=== PATIENT | female | born 1945 | race Two or more races ===

== ENCOUNTER → 2024-08-11 | Outpatient (CLI) | payer OTHER, SELFPAY ==
--- NOTE | 2024-08-11 13:30 | XR_ITS ---
Examination: Breast ultrasound complete, bilateral Date and time of exam: August 11, 2024 1413 hours INDICATIONS: Mammogram May 23, 2024 14 mm focal asymmetry upper outer right breast, 6 mm focal asymmetry inner right breast Technique: Real-time grayscale ultrasonographic imaging bilateral breasts, including all 4 quadrants as well as nipple retroareolar and axillary regions. Findings: Sonographic images right breast 11:00 oval mass circumscribed 8 x 4 x 6 mm Sonographic images left breast No cystic or solid mass IMPRESSION: BI-RADS Category 3: Probably benign findings Recommend continued 6 month follow-up right breast sonogram to document stability of 11:00 nodule described above
--- NOTE | 2024-08-11 14:30 | XR_ITS ---
Examination: Diagnostic digital mammography, unilateral, right Computer aided detection 3-D breast Tomosynthesis, unilateral Date and time of exam: August 11, 2024 1523 hours INDICATIONS: Mammogram May 23, 2024 14 mm focal asymmetry outer right breast 6 mm focal asymmetry inner right breast Technique: Nonmagnified MLO, CC views of the right breast have been obtained, reconstructed from 3-D Tomosynthesis images. R2 computer aided detection program utilized for evaluation of suspicious masses and/or abnormal calcifications. 3-D Tomosynthesis images obtained. Findings: The breast is heterogeneously dense, which may obscure small masses Focal asymmetry remains slightly outer right breast on the spot compression CC view Impression: BI-RADS category 3: Probably benign findings One additional 6 month right mammogram follow-up is needed to document stability of focal asymmetry slightly outer right breast on the CC view, approximately 15 mm
== END | disposition home or self-care (01) ==
LOC: CDIM 13:30
PROVIDERS: PCP Family Medicine; Referring Provider Family Medicine; Visit Provider Family Medicine
DX: R92.331 Mammographic heterogeneous density, right breast (principal); N64.89 Other specified disorders of breast; N63.11 Unspecified lump in the right breast, upper outer quadrant
CPT/HCPCS: 76641; 77061; 77065; G0279

== ENCOUNTER → 2024-08-25 | Outpatient (CLI) | payer OTHER, SELFPAY ==
[2024-08-25 13:31] LABS: Glucose Estimated Average 229 mg/dL (80-131); Hemoglobin A1C 9.6 % Hgb (4.8-6.0)
[2024-08-25 13:32] LABS: Basophils # (Auto) 0.1 Thou/mm3 (0.0-0.2); Basophils % (Auto) 1 % (0-2.5); Eosinophils # (Auto) 0.2 Thou/mm3 (0.0-0.5); Eosinophils % (Auto) 3 % (0-10); Hemoglobin 13.7 g/dL (12.0-16.0); Immature Granulocytes % (Auto) 0 % (0-0); Immature Granulocytes Auto 0.02 Thou/mm3 (0.00-0.00); Lymphocytes # (Auto) 1.7 Thou/mm3 (1.0-4.8); Lymphocytes % (Auto) 27 % (10-50); Mean Corpuscular HGB Conc 34.3 g/dl (31.0-37.0); Mean Corpuscular Hemoglobin 33.3 pg (25.0-35.0); Mean Corpuscular Volume 97 fL (80-100); Monocytes # (Auto) 0.5 Thou/mm3 (0.0-0.8); Monocytes % (Auto) 7 % (0-12); Neutrophils # (Auto) 3.8 Thou/mm3 (1.8-7.7); Neutrophils % (Auto) 61 % (37-80); Nucleated Red Blood Cell % 0 /100 WBC (0); Platelet Count 267 Thou/mm3 (140-440); RDW Standard Deviation 44.3 fL (36.4-46.3); Red Blood Count 4.11 Miln/mm3 (4.00-5.20); White Blood Count 6.3 Thou/mm3 (3.6-11.0)
[2024-08-25 13:38] LABS: Alanine Aminotransferase 31 U/L (10-49); Albumin, Serum 4.7 gm/dL (3.4-4.8); Albumin/Globulin Ratio 2.1 (1.2-2.2); Alkaline Phosphatase 98 U/L (46-116); Anion Gap 9 (7-16); Aspartate Amino Transferase 25 U/L (0-34); BUN/Creatinine Ratio 21 Ratio (12-20); Bilirubin,Total 0.8 mg/dL (0.3-1.2); Blood Urea Nitrogen 17 mg/dL (9-23); Calcium 10.3 mg/dL (8.3-10.6); Calcium (Corrected) 10.3 mg/dL (8.5-10.1); Carbon Dioxide 28.7 mMol/L (20.0-31.0); Cardiac Risk Estimate 4.2 RATIO (3.7-5.6); Chloride 98 mMol/L (98-107); Cholesterol 183 mg/dL (132-200); Creatinine (Component) 0.8 mg/dL (0.6-1.3); Globulin 2.2 gm/dL (2.3-3.5); Glucose 288 mg/dL (74-106); HDL Cholesterol 44 mg/dL (40-60); LDL Cholesterol,Calculated 92 mg/dL (0-130); Osmolality,Calculated 284 (275-295); Sodium 136 mMol/L (136-145); Total Protein 6.9 gm/dL (5.7-8.2); Triglycerides 237 mg/dL (30-150); eGFR > 60 See Note
[2024-08-25 17:18] LABS: Collection Type, Urine Clean Catch
[2024-08-25 17:44] LABS: Bacteria,Urine Rare; Bilirubin,Urine Negative (Negative); Blood,Urine Negative (Negative); Clarity,Urine Clear (Clear/Hazy); Color,Urine Lt-Yellow (Lt Yel-Yel); Glucose, Urine 4+ (Negative); Ketones,Urine Negative (Negative); Leukocyte Esterase,Urine Negative (Negative); Nitrite,Urine Negative (Negative); Protein,Urine Negative (Neg - Trace); RBC,Urine 3 /hpf (0-3); Specific Gravity,Urine 1.031 (1.001-1.035); Squamous Epithelial Cell,Urine 2 /hpf (0-5); Urobilinogen,Urine Negative mg/dL (0.0-1.0); WBC,Urine 2 /hpf (0-5)
[2024-08-25 17:56] LABS: Creatinine MALB Rnd Ur 55 mg/dL (30-125); Microalbumin Creat Ratio 25 mg/gCrea (<30); Microalbumin, Random Urine 14 mg/L (0-300)
== END | disposition home or self-care (01) ==
LOC: COPL 11:47
PROVIDERS: PCP Family Medicine; Referring Provider Family Medicine; Visit Provider Family Medicine
DX: Z00.00 Encounter for general adult medical examination without abnormal findings (principal); E11.40 Type 2 diabetes mellitus with diabetic neuropathy, unspecified; E78.2 Mixed hyperlipidemia; I10 Essential (primary) hypertension
CPT/HCPCS: 36415; 80053; 80061; 81001; 82043; 82570; 83036; 85025

== ENCOUNTER → 2024-10-27 | Outpatient (CLI) | payer OTHER, SELFPAY ==
[2024-10-27 13:36] LABS: Basophils # (Auto) 0.1 Thou/mm3 (0.0-0.2); Basophils % (Auto) 1 % (0-2.5); Eosinophils # (Auto) 0.2 Thou/mm3 (0.0-0.5); Eosinophils % (Auto) 2 % (0-10); Hemoglobin 13.8 g/dL (12.0-16.0); Immature Granulocytes % (Auto) 0 % (0-0); Immature Granulocytes Auto 0.02 Thou/mm3 (0.00-0.00); Lymphocytes # (Auto) 1.5 Thou/mm3 (1.0-4.8); Lymphocytes % (Auto) 18 % (10-50); Mean Corpuscular HGB Conc 34.5 g/dl (31.0-37.0); Mean Corpuscular Hemoglobin 32.9 pg (25.0-35.0); Mean Corpuscular Volume 96 fL (80-100); Monocytes # (Auto) 0.3 Thou/mm3 (0.0-0.8); Monocytes % (Auto) 4 % (0-12); Neutrophils % (Auto) 75 % (37-80); Nucleated Red Blood Cell % 0 /100 WBC (0); Platelet Count 245 Thou/mm3 (140-440); RDW Standard Deviation 42.1 fL (36.4-46.3); Red Blood Count 4.19 Miln/mm3 (4.00-5.20); White Blood Count 8.1 Thou/mm3 (3.6-11.0)
[2024-10-27 13:54] LABS: Glucose Estimated Average 286 mg/dL (80-131); Hemoglobin A1C 11.6 % Hgb (4.8-6.0)
[2024-10-27 14:11] LABS: Creatinine MALB Rnd Ur 58 mg/dL (30-125); Microalbumin Creat Ratio 128 mg/gCrea (<30); Microalbumin, Random Urine 74 mg/L (0-300)
[2024-10-27 14:39] LABS: Alanine Aminotransferase 26 U/L (10-49); Albumin, Serum 4.3 gm/dL (3.4-4.8); Albumin/Globulin Ratio 1.8 (1.2-2.2); Alkaline Phosphatase 90 U/L (46-116); Anion Gap 9 (7-16); Aspartate Amino Transferase 19 U/L (0-34); BUN/Creatinine Ratio 14 Ratio (12-20); Bilirubin,Total 0.8 mg/dL (0.3-1.2); Blood Urea Nitrogen 11 mg/dL (9-23); Calcium 9.9 mg/dL (8.3-10.6); Calcium (Corrected) 9.9 mg/dL (8.5-10.1); Carbon Dioxide 27.6 mMol/L (20.0-31.0); Cardiac Risk Estimate 4.1 RATIO (3.7-5.6); Chloride 100 mMol/L (98-107); Cholesterol 163 mg/dL (132-200); Creatinine (Component) 0.8 mg/dL (0.6-1.3); Globulin 2.4 gm/dL (2.3-3.5); Glucose 349 mg/dL (74-106); HDL Cholesterol 40 mg/dL (40-60); LDL Cholesterol,Calculated 79 mg/dL (0-130); Osmolality,Calculated 287 (275-295); Potassium 4.5 mMol/L (3.4-5.1); Sodium 137 mMol/L (136-145); Thyroid Stimulating Hormone 1.76 uIU/mL (0.55-4.78); Total Protein 6.7 gm/dL (5.7-8.2); Triglycerides 220 mg/dL (30-150); eGFR > 60 See Note
== END | disposition home or self-care (01) ==
LOC: COPL 12:05
PROVIDERS: PCP Family Medicine; Referring Provider Family Medicine; Visit Provider Family Medicine
DX: E11.40 Type 2 diabetes mellitus with diabetic neuropathy, unspecified (principal)
CPT/HCPCS: 36415; 80053; 80061; 82043; 82570; 83036; 84443; 85025

== ENCOUNTER → 2025-02-11 | Outpatient (CLI) | payer OTHER, SELFPAY ==
--- NOTE | 2025-02-11 08:03 | XR_ITS ---
Examination: Diagnostic digital mammography, unilateral, right Computer aided detection 3-D breast Tomosynthesis, unilateral Date and time of exam: February 11, 2025 0812 hours INDICATIONS: Mammogram May 23, 2024 14 mm focal asymmetry outer right breast 6 mm focal asymmetry inner right breast Technique: Nonmagnified MLO, CC views of the right breast have been obtained, reconstructed from 3-D Tomosynthesis images. R2 computer aided detection program utilized for evaluation of suspicious masses and/or abnormal calcifications. 3-D Tomosynthesis images obtained. Findings: The breast is heterogeneously dense, which may obscure small masses 10-11 o'clock nodule right breast noted, 8 mm Impression: BI-RADS category 0: Incomplete: Need additional imaging evaluation Recommend repeat right breast sonography to compare with the August 11, 2024 exam
[2025-02-11 09:47] LABS: Glucose Estimated Average 131 mg/dL (80-131); Hemoglobin A1C 6.2 % Hgb (4.8-6.0)
[2025-02-11 10:10] LABS: Alanine Aminotransferase 12 U/L (10-49); Albumin, Serum 4.5 gm/dL (3.4-4.8); Albumin/Globulin Ratio 1.9 (1.2-2.2); Alkaline Phosphatase 62 U/L (46-116); Anion Gap 7 (7-16); Aspartate Amino Transferase 17 U/L (0-34); BUN/Creatinine Ratio 17 Ratio (12-20); Bilirubin,Total 0.6 mg/dL (0.3-1.2); Blood Urea Nitrogen 15 mg/dL (9-23); Calcium 10.5 mg/dL (8.3-10.6); Calcium (Corrected) 10.5 mg/dL (8.5-10.1); Carbon Dioxide 27.6 mMol/L (20.0-31.0); Cardiac Risk Estimate 3.2 RATIO (3.7-5.6); Chloride 106 mMol/L (98-107); Cholesterol 154 mg/dL (132-200); Creatinine (Component) 0.9 mg/dL (0.6-1.3); Globulin 2.4 gm/dL (2.3-3.5); Glucose 107 mg/dL (74-106); HDL Cholesterol 48 mg/dL (40-60); LDL Cholesterol,Calculated 78 mg/dL (0-130); Osmolality,Calculated 282 (275-295); Potassium 4.6 mMol/L (3.4-5.1); Sodium 141 mMol/L (136-145); Total Protein 6.9 gm/dL (5.7-8.2); Triglycerides 141 mg/dL (30-150); eGFR > 60 See Note
== END | disposition home or self-care (01) ==
LOC: CDIM 07:49 → COPL 08:27
PROVIDERS: PCP Family Medicine; Referring Provider Family Medicine; Visit Provider Radiology Diagnostic Radiology
DX: R92.8 Other abnormal and inconclusive findings on diagnostic imaging of breast (principal); E11.65 Type 2 diabetes mellitus with hyperglycemia; E78.2 Mixed hyperlipidemia; I10 Essential (primary) hypertension
CPT/HCPCS: 36415; 77061; 77065; 80053; 80061; 83036; G0279

== ENCOUNTER → 2025-03-20 | Outpatient (CLI) | payer OTHER, SELFPAY ==
--- NOTE | 2025-03-20 11:00 | XR_ITS ---
Examination: Breast ultrasound, unilateral, right complete Date and time of exam: March 30, 2025 1045 hours INDICATIONS: Bilateral breast sonography August 11, 2024 right breast 11:00 nodule 8 x 4 x 6 mm Technique: Real-time davis scale ultrasonographic imaging performed right breast including all 4 quadrants as well as nipple retroareolar and axillary region. Findings: 11:00 nodule with breast biopsy marker 5 x 4 x 6 mm IMPRESSION: BI-RADS Category 2: Benign findings
== END | disposition home or self-care (01) ==
LOC: CDIM 10:27
PROVIDERS: PCP Family Medicine; Referring Provider Family Medicine; Visit Provider Family Medicine
DX: R92.2 Inconclusive mammogram (principal)
CPT/HCPCS: 76641

== ENCOUNTER → 2025-07-29 | Outpatient (CLI) | payer OTHER, SELFPAY ==
--- NOTE | 2025-07-29 12:00 | XR_ITS ---
Examination: Bone densitometry Date and time of exam: July 292024, 12:13 p.m. INDICATIONS: Hysterectomy age 36 vitamin D and calcium 20 years, personal history osteoporosis Technique: Lumbar spine and hip total bone mineralization values of an calculated. Peak reference and age match control results have been displayed. Findings: Lumbar spine total bone mineralization is 0.838 gm/cm2. This is 1.9 standard deviations below peak reference. This is 1.8 standard deviations above age-matched controls. Hip total bone mineralization is 0.722 gm/cm2 This is 1.8 standard deviations below peak reference. This is 0.3 standard deviations above age-matched controls Impression: There is osteopenia based on lumbar spine measurements. There is osteopenia based on hip measurements Lumbar mineralization is decreased 0.4% compared with July 16, 2023 Hip mineralization is decreased 9.4% compared with July 16, 2023
== END | disposition home or self-care (01) ==
LOC: CDIM 11:32
PROVIDERS: PCP Family Medicine; Referring Provider Family Medicine; Visit Provider Family Medicine
DX: M85.89 Other specified disorders of bone density and structure, multiple sites (principal)
CPT/HCPCS: 77080

== ENCOUNTER → 2025-07-30 | Outpatient (CLI) | payer OTHER, SELFPAY ==
[2025-07-30 11:22] LABS: Alanine Aminotransferase 10 U/L (10-49); Albumin, Serum 4.4 gm/dL (3.4-4.8); Albumin/Globulin Ratio 1.6 (1.2-2.2); Alkaline Phosphatase 63 U/L (46-116); Anion Gap 9 (7-16); Aspartate Amino Transferase 15 U/L (0-34); BUN/Creatinine Ratio 19 Ratio (12-20); Bilirubin,Total 0.5 mg/dL (0.3-1.2); Blood Urea Nitrogen 15 mg/dL (9-23); Calcium 11.1 mg/dL (8.3-10.6); Calcium (Corrected) 11.1 mg/dL (8.5-10.1); Carbon Dioxide 27.7 mMol/L (20.0-31.0); Chloride 105 mMol/L (98-107); Creatinine (Component) 0.8 mg/dL (0.6-1.3); Globulin 2.7 gm/dL (2.3-3.5); Glucose 125 mg/dL (74-106); Osmolality,Calculated 284 (275-295); Potassium 4.6 mMol/L (3.4-5.1); Sodium 142 mMol/L (136-145); Total Protein 7.1 gm/dL (5.7-8.2); eGFR > 60 See Note
[2025-07-30 12:17] LABS: Cardiac Risk Estimate 3.0 RATIO (3.7-5.6); Cholesterol 137 mg/dL (132-200); HDL Cholesterol 46 mg/dL (40-60); LDL Cholesterol,Calculated 66 mg/dL (0-130); Triglycerides 125 mg/dL (30-150)
[2025-07-30 12:37] LABS: Glucose Estimated Average 126 mg/dL (80-131); Hemoglobin A1C 6.0 % Hgb (4.8-6.0)
== END | disposition home or self-care (01) ==
LOC: COPL 09:47
PROVIDERS: PCP Family Medicine; Referring Provider Family Medicine; Visit Provider Family Medicine
DX: E11.69 Type 2 diabetes mellitus with other specified complication (principal); E78.2 Mixed hyperlipidemia; I10 Essential (primary) hypertension
CPT/HCPCS: 36415; 80053; 80061; 83036